=== PATIENT | female | born 1975 ===

== ENCOUNTER 2022-04-30 08:57 | Outpatient (CLI) | payer OTHER | END 2022-04-30 09:10 | disposition home or self-care (01) | LOC: MAMO-SONO 08:57 | PROVIDERS: ATTEND Obstetrics & Gynecology | DX: N64.4 Mastodynia (principal); R10.2 Pelvic and perineal pain ==

== ENCOUNTER 2023-11-07 10:49 | Outpatient (CLI) | payer OTHER ==
[2023-11-07 13:05] LABS: URINE APPEARANCE Clear; URINE BILIRRUBIN Negative (NEGATIVE); URINE BLOOD Small; URINE COLOR Yellow; URINE GLUCOSE Negative (NEGATIVE); URINE KETONE Negative (NEGATIVE); URINE LEUKOCYTE Small; URINE NITRATE Negative; URINE PROTEIN Negative (NEGATIVE); URINE UROBILINOGEN 0.2 E.U./dl
[2023-11-07 13:09] LABS: URINE BACTERIA 2247.4 uL (0.0-1933); URINE EPITHELIAL CELLS 41.5 uL (0.0-38.8); URINE RBC 8.7 uL (0.0-20.8); URINE WBC 77.9 uL (0.0-23.2)
[2023-11-10 07:06] LABS: hav igm Negative (Negative); hcv Non Reactive (Non Reactive); hep b c Negative (Negative); hep b s ag Negative (Negative)
== END 2023-11-07 11:02 | disposition home or self-care (01) ==
LOC: LAB 10:49
PROVIDERS: ATTEND Obstetrics & Gynecology
DX: N39.0 Urinary tract infection, site not specified (principal); M25.50 Pain in unspecified joint; D50.8 Other iron deficiency anemias; Z11.3 Encounter for screening for infections with a predominantly sexual mode of transmission; Z11.59 Encounter for screening for other viral diseases; R74.8 Abnormal levels of other serum enzymes; B18.2 Chronic viral hepatitis C

== ENCOUNTER 2023-11-13 10:49 | Outpatient (CLI) | payer OTHER ==
[2023-11-13 13:08] LABS: ob NEGATIVE (NEGATIVE)
== END 2023-11-13 11:00 | disposition home or self-care (01) ==
LOC: LAB 10:49
PROVIDERS: ATTEND Obstetrics & Gynecology
DX: N39.0 Urinary tract infection, site not specified (principal); M25.50 Pain in unspecified joint; D50.8 Other iron deficiency anemias; Z12.11 Encounter for screening for malignant neoplasm of colon